=== PATIENT | female | born 1945 | race Caucasian/White ===

== ENCOUNTER 2017-04-04 13:36 | Observation (INO) | payer MEDICARE ==
[~2017-04-04] VITALS: Ht 149.9 cm; Wt 61.5 kg
[~2017-04-04 13:36] MED LIST: MORP30SU PO; SENO8.6T6 PO; ZOFR8TAB4 PO
[2017-04-04 13:38] VITALS: BP 163/88; PULSE 78; RESP 24; TEMP 98.3; O2SAT 96
[2017-04-04] MEDS ORDERED: SODIUM CHLOR 0.9% 1000 ML INJ 1,000 ML IV ONE ×2 (14:20→16:00)
[2017-04-04] MEDS ORDERED: ONDANSETRON HCL 4 MG/2 ML VIAL IVP ONE (14:30)
[2017-04-04] MEDS ORDERED: SODIUM CHLORIDE 0.9% FLUSH 10 ML FLUSH IVF PRN (14:30)
--- NOTE | 2017-04-04 15:10 | PD ---
HPI Chief Complaint: GI Complaint Time Seen by Provider: 14:15 Travel History International Travel<30 days: No Contact w/Intl Traveler<30days: No Traveled to known affect area: No History of Present Illness HPI Patient is a 71-year-old female presenting to emergency for evaluation of intractable vomiting. Patient states it started yesterday around 3 PM. She is currently receiving chemotherapy for metastatic pancreatic cancer. She started her infusion yesterday, and they will continue through tomorrow. She denies any abdominal pain but reports irritation in her throat. She has been dry heaving, vomiting yellow green bile. She is intolerant to any food or fluids. PFSH Past Medical History Cancer: No Cardiovascular Problems: No High Cholesterol: Yes Chemotherapy: Yes (IN PROCESS) Diabetes: No GERD: Yes Glaucoma: No Hepatitis: No Hiatal Hernia: No Hypertension: No Musculoskeletal: No Neurologic: No Respiratory: No Thyroid Disease: No Menopausal: Yes Past Surgical History Appendectomy: Yes Gynecologic Surgery: Yes (D&C, several) Pacemaker: No Social History Alcohol Use: Yes (RARE) Tobacco Use: No Substance Use: No Allergies-Medications (Allergen,Severity, Reaction): Coded Allergies: No Known Allergies (Verified , 04/04/17) Reported Meds & Prescriptions Reported Meds & Active Scripts Active Reported Morphine Sulfate Ir 30 mg Tab (Morphine Sulfate) 30 Mg Tab 30 Mg PO Q12 PRN Senokot (Sennosides) 8.6 Mg Tab 8.6 Mg PO BID Zofran Odt (Ondansetron HCl) 8 Mg Tab 8 Mg PO Q8 PRN Review of Systems Except as stated in HPI: all other systems reviewed are Neg Gastrointestinal: Positive: Nausea, Vomiting, Loss of Appetite Physical Exam Narrative GENERAL: Well-developed, well-nourished, alert female. Appears uncomfortable, in no acute distress. SKIN: Warm and dry. HEAD: Atraumatic. Normocephalic. EYES: Pupils equal and round. No scleral icterus. No injection or drainage. ENT: No nasal bleeding or discharge. Mucous membranes pink and moist. NECK: Trachea midline. No JVD. CARDIOVASCULAR: Regular rate and rhythm. RESPIRATORY: No accessory muscle use. Clear to auscultation. Breath sounds equal bilaterally. GASTROINTESTINAL: Abdomen soft, non-tender, nondistended. Hepatic and splenic margins not palpable. MUSCULOSKELETAL: Extremities without clubbing, cyanosis, or edema. No obvious deformities. NEUROLOGICAL: Awake and alert. No obvious cranial nerve deficits. Motor grossly within normal limits. Five out of 5 muscle strength in the arms and legs. Normal speech. PSYCHIATRIC: Appropriate mood and affect; insight and judgment normal. Data Data Last Documented VS Vital Signs Date Time Temp Pulse Resp B/P Pulse Ox O2 Delivery O2 Flow Rate FiO2 04/04/17 13:38 98.3 78 24 163/88 96 Room Air Orders Complete Blood Count With Diff (04/04/17 14:20) Comprehensive Metabolic Panel (04/04/17 14:20) Lipase (04/04/17 14:20) Iv Access Insert/Monitor (04/04/17 14:20) Ecg Monitoring (04/04/17 14:20) Oximetry (04/04/17 14:20) Ondansetron Inj (Zofran Inj) (04/04/17 14:30) Sodium Chlor 0.9% 1000 Ml Inj (Ns 1000 M (04/04/17 14:20) Sodium Chloride 0.9% Flush (Ns Flush) (04/04/17 14:30) Sodium Chlor 0.9% 1000 Ml Inj (Ns 1000 M (04/04/17 16:00) Promethazine Inj (Phenergan Inj) (04/04/17 16:30) Prochlorperazine Inj (Compazine Inj) (04/04/17 17:15) Admit Order (Ed Use Only) (04/04/17 17:44) Labs Laboratory Tests Test 04/04/17 14:50 White Blood Count 12.7 TH/MM3 Red Blood Count 4.40 MIL/MM3 Hemoglobin 12.6 GM/DL Hematocrit 38.6 % Mean Corpuscular Volume 87.7 FL Mean Corpuscular Hemoglobin 28.6 PG Mean Corpuscular Hemoglobin 32.7 % Concent Red Cell Distribution Width 15.8 % Platelet Count 157 TH/MM3 Mean Platelet Volume 7.9 FL Neutrophils (%) (Auto) 82.4 % Lymphocytes (%) (Auto) 8.2 % Monocytes (%) (Auto) 9.3 % Eosinophils (%) (Auto) 0.0 % Basophils (%) (Auto) 0.1 % Neutrophils # (Auto) 10.4 TH/MM3 Lymphocytes # (Auto) 1.0 TH/MM3 Monocytes # (Auto) 1.2 TH/MM3 Eosinophils # (Auto) 0.0 TH/MM3 Basophils # (Auto) 0.0 TH/MM3 CBC Comment DIFF FINAL Differential Comment Sodium Level 144 MEQ/L Potassium Level 3.7 MEQ/L Chloride Level 104 MEQ/L Carbon Dioxide Level 29.9 MEQ/L Anion Gap 10 MEQ/L Blood Urea Nitrogen 24 MG/DL Creatinine 1.05 MG/DL Estimat Glomerular Filtration 51 ML/MIN Rate Random Glucose 121 MG/DL Calcium Level 9.4 MG/DL Total Bilirubin 0.7 MG/DL Aspartate Amino Transf 39 U/L (AST/SGOT) Alanine Aminotransferase 24 U/L (ALT/SGPT) Alkaline Phosphatase 141 U/L Total Protein 7.5 GM/DL Albumin 4.0 GM/DL Lipase 36 U/L [facility] Medical Decision Making Medical Screen Exam Complete: Yes Emergency Medical Condition: Yes Medical Record Reviewed: Yes Interpretation(s) Laboratory Tests Test 04/04/17 14:50 White Blood Count 12.7 TH/MM3 Red Blood Count 4.40 MIL/MM3 Hemoglobin 12.6 GM/DL Hematocrit 38.6 % Mean Corpuscular Volume 87.7 FL Mean Corpuscular Hemoglobin 28.6 PG Mean Corpuscular Hemoglobin 32.7 % Concent Red Cell Distribution Width 15.8 % Platelet Count 157 TH/MM3 Mean Platelet Volume 7.9 FL Neutrophils (%) (Auto) 82.4 % Lymphocytes (%) (Auto) 8.2 % Monocytes (%) (Auto) 9.3 % Eosinophils (%) (Auto) 0.0 % Basophils (%) (Auto) 0.1 % Neutrophils # (Auto) 10.4 TH/MM3 Lymphocytes # (Auto) 1.0 TH/MM3 Monocytes # (Auto) 1.2 TH/MM3 Eosinophils # (Auto) 0.0 TH/MM3 Basophils # (Auto) 0.0 TH/MM3 CBC Comment DIFF FINAL Differential Comment Sodium Level 144 MEQ/L Potassium Level 3.7 MEQ/L Chloride Level 104 MEQ/L Carbon Dioxide Level 29.9 MEQ/L Anion Gap 10 MEQ/L Blood Urea Nitrogen 24 MG/DL Creatinine 1.05 MG/DL Estimat Glomerular Filtration 51 ML/MIN Rate Random Glucose 121 MG/DL Calcium Level 9.4 MG/DL Total Bilirubin 0.7 MG/DL Aspartate Amino Transf 39 U/L (AST/SGOT) Alanine Aminotransferase 24 U/L (ALT/SGPT) Alkaline Phosphatase 141 U/L Total Protein 7.5 GM/DL Albumin 4.0 GM/DL Lipase 36 U/L Vital Signs Date Time Temp Pulse Resp B/P Pulse Ox O2 Delivery O2 Flow Rate FiO2 04/04/17 13:38 98.3 78 24 163/88 96 Room Air Differential Diagnosis Metabolic abnormality versus intractable nausea and vomiting versus medication side effects versus other Narrative Course Patient is a 71-year-old female presenting for evaluation of intractable nausea and vomiting secondary to chemotherapy. Patient has a right chest port and is currently receiving chemotherapy infusion. Patient's vital signs are stable, labs ordered and pending IV fluids and Zofran ordered. Pt continued to vomit despite Zofran administration. Phenergan ordered by Dr. Wagner. A second liter of IVF's ordered. CBC with a white count of 12.7 with left shift, likely inflammatory from vomiting, patient remains afebrile, chemistry with a slight elevation BUN and creatinine otherwise no acute findings identified. Compazine ordered. Pt continues to dry heave. Discussed with S, Dr. Mejia who accepted admit. Order placed under Dr. Wakefield per his request. Paged Dr. Ray to notify him of admit. Pt agreeable to plan. Diagnosis Primary Impression: Intractable vomiting with nausea Qualified Code: R11.2 - Intractable vomiting with nausea, unspecified vomiting type Admitting Information Admitting Physician Requests: Observation Condition: Stable Che Gonzalez PATIENT CARE TECHNICIAN Apr 04, 2017 15:10
[2017-04-04 15:18] LABS: AUTOMATED NEUTROPHIL # 10.4 TH/MM3 (1.8-7.7); BASOPHIL % 0.1 % (0.0-2.0); HEMATOCRIT 38.6 % (35.0-46.0); HEMO FLAGS DIFF FINAL; LYMPH % 8.2 % (9.0-44.0); MEAN CELL VOLUME 87.7 FL (80.0-100.0); MEAN CORPUSCULAR HEMOGLOBIN 28.6 PG (27.0-34.0); MEAN CORPUSCULAR HGB CONC 32.7 % (32.0-36.0); MONO % 9.3 % (0.0-8.0); NEUT % 82.4 % (16.0-70.0); PLATELET COUNT 157 TH/MM3 (150-450); RED CELL DISTRIBUTION WIDTH 15.8 % (11.6-17.2); WHITE BLOOD COUNT 12.7 TH/MM3 (4.0-11.0)
[2017-04-04 15:40] LABS: ANION GAP 10 MEQ/L (5-15); AST (GOT) 39 U/L (15-37); BICARBONATE 29.9 MEQ/L (21.0-32.0); BLOOD UREA NITROGEN 24 MG/DL (7-18); CHLORIDE 104 MEQ/L (98-107); GLOMERULAR FILTRATION RATE 51 ML/MIN (>89); POTASSIUM 3.7 MEQ/L (3.5-5.1); SODIUM (NA) 144 MEQ/L (136-145)
[2017-04-04 15:41] LABS: ALKALINE PHOSPHATASE 141 U/L (45-117); ALT (GPT) 24 U/L (10-53); TOTAL BILIRUBIN ADULT 0.7 MG/DL (0.2-1.0)
[2017-04-04] MEDS ORDERED: PROMETHAZINE INJ 25 MG/ML VIAL IM ONE (16:30)
[2017-04-04] MEDS ORDERED: PROCHLORPERAZINE INJ 10 MG/2 ML VIAL IV PUSH ONE (17:15)
[2017-04-04] MEDS ORDERED: SENNOSIDES 8.6 MG TAB PO PRN (18:00)
[2017-04-04] MEDS ORDERED: ONDANSETRON HCL 4 MG/2 ML VIAL IV PUSH PRN (18:00)
[2017-04-04] MEDS ORDERED: NALOXONE HCL 0.4 MG/ML AMP IV PRN (18:00)
[2017-04-04] MEDS ORDERED: SODIUM CHLORIDE 0.9% FLUSH 10 ML FLUSH IV FLUSH PRN (18:00)
[2017-04-04] MEDS ORDERED: ONDANSETRON HCL 4 MG/2 ML VIAL IVP PRN (18:00)
[2017-04-04] MEDS ORDERED: BISACODYL 10 MG SUPP RECTAL PRN (18:00)
[2017-04-04] MEDS ORDERED: ACETAMINOPHEN 325 MG TAB PO PRN (18:00)
[2017-04-04] MEDS ORDERED: ONDANSETRON ODT 4 MG TAB PO PRN (19:00)
[2017-04-04 19:22] VITALS: BP 120/59; PULSE 81; RESP 18; O2SAT 94
--- NOTE | 2017-04-04 19:51 | MH ---
cc: NERISSA HAMILTON DATE OF ADMISSION 04/04/2017 DATE OF 1945 CHIEF COMPLAINT Nausea, vomiting. Travel in the last 30 days, none. HISTORY OF PRESENT ILLNESS This is a pleasant but unfortunate 71-year-old female who is presented to the emergency room with uncontrollable nausea, vomiting. The patient is a known pancreatic cancer patient. She is currently receiving chemotherapy via slow infusion and it will be completed tomorrow. The patient has undergone 53 three-day treatments of chemotherapy and has survived for several years with her pancreatic cancer. Currently she is to continuing to dry heave, and vomit yellow-green bile. She states that her throat is very sore from the multiple episodes of vomiting. She has had these symptoms since 03:00 p.m. yesterday. Due to the patient's continuous nausea and vomiting limited information was given per the patient, although she is alert and a good historian, most of the other information such as her history will be gathered from the record. The patient does note a 30 pound weight loss on her initial diagnosis but has regained her 30 pounds back. She denies any dysuria. She is voiding fine and she had a normal bowel movement today. Today the patient has been unable to keep any food down. PAST MEDICAL HISTORY 1. Pancreatic cancer. 2. Hyperlipidemia. 3. Gastroesophageal reflux disease. PAST SURGICAL HISTORY 1. Appendectomy. 2. Several dilation and curettages. 3. Chemotherapy infusion port. ALLERGIES NONE KNOWN. MEDICATIONS Reported: 1. morphine sulfate 30 mg tablets p.o. at 12 hours as needed. 2. Senokot suppositories. 3. Zofran 8 mg p.o. q.8h as needed. SOCIAL HISTORY The patient is single, currently lives in her home. Her children are with her assisting her during this difficult time. The patient denies any tobacco. No illicit drugs. A rare social alcohol drink. REVIEW OF SYSTEMS Limited secondary to the patient's nausea, vomiting. She does note continuous nausea and vomiting. Currently has chemotherapy infusing. Other information is listed in HPI, otherwise systems are negative. PHYSICAL EXAMINATION VITAL SIGNS: Temperature is 98.3, pulse 78, respiratory rate 18-24, blood pressure 163/88. O2 saturation 96% currently on room air. GENERAL: Well-developed, well-nourished white female looks younger than her stated age, resting on the bed. She is awake with some mild facial grimace related to a nausea, vomiting. SKIN: [place], warm and dry. HEENT: Atraumatic, normocephalic. PETER at 3. Mucous membranes are moist and pink. No scleral icterus. NECK: Supple. CARDIOVASCULAR: S1-S2, rhythm is regular. She does have a systolic murmur grade 2/6 at the left sternal border. RESPIRATORY: Essentially clear lungs anteriorly and posteriorly. No wheezes or rhonchi. GASTROINTESTINAL: Abdomen is soft, nondistended. Bowel sounds are active. MUSCULOSKELETAL: Moves all of her extremities with purpose. No obvious deformities. NEUROLOGIC: She is awake, alert, a fairly good historian. Upper body strength is equal. PSYCHIATRIC: Mood and affect appropriate. Insight and judgment normal. DIAGNOSTIC DATA WBC count 12.7, RBC 4.4, hemoglobin 12.6, hematocrit 38.6, platelet count 157, neutrophil count 82.4, lymphocyte count 8.2, monocyte count 9.3. Chemistry sodium 144, potassium 3.7, chloride 104, carbon dioxide 29.9. Amnion gap 10, BUN 24, creatinine 1.05, GFR 51, random glucose 121, AST 39, alkaline phosphatase 141, lipase 36. ASSESSMENT/PLAN 1. Intractable nausea and vomiting, uncontrolled. 2. Pancreatic cancer with metastases to lung. 3. Pancreatic cancer with metastases to liver. 4. Leukocytosis. 5. Acute kidney injury with probable dehydration. 6. Mildly elevated blood sugar. 7. Elevated alkaline phosphatase. Our plan is to admit for observation and control her symptoms chiefly of nausea, vomiting. We will place her on IV fluids for hydration, clear liquids only as tolerated. Encouraged ice chips. We will continue his ECG monitoring with IV access, PUD prophylaxis with IV Pepcid until she can tolerate p.o. DVT prophylaxis with heparin subcutaneous. We will monitor her vital signs q.4h and as warranted. Out of bed activity with assistance. We will consult her medical oncologist who is Dr. Ray or one of his associates to assist in her care. Bowel regimen has been ordered. Home medications have been reconciled except for her pain medications. The patient states that she does not take any pain medications but has as needed medications only if needed. We will continue to follow. Dictated by: RAJ Hernandez MD DIGNA Hyde/ELMIRA /6:38 PM /7:19 PM
[2017-04-04 20:33] VITALS: BP 193/93; PULSE 75; RESP 18; TEMP 99; O2SAT 95
[2017-04-04] MEDS ORDERED: SENNOSIDES 8.6 MG TAB PO SCH (21:00)
[2017-04-04] MEDS ORDERED: PROMETHAZINE HCL 25 MG TAB PO PRN (22:30)
[2017-04-04] MEDS ORDERED: TEMAZEPAM 15 MG CAP PO PRN (22:30)
[2017-04-04] MEDS ORDERED: PILL SPLITTER OTHER PRN (22:30)
[2017-04-04] MEDS ORDERED: cloNIDine HCL 0.1 MG TAB PO PRN (22:30)
[2017-04-04] MEDS: FAMOTIDINE 20 MG/2 ML VIAL IV PUSH SCH (22:39)
[2017-04-04] MEDS: HEPARIN SODIUM - SQ 10,000 UNITS/ML VIAL SQ SCH (22:39)
[2017-04-04] MEDS: SODIUM CHLORIDE 0.9% FLUSH 10 ML FLUSH IV FLUSH SCH (22:40)
[2017-04-04] MEDS: SODIUM CHLOR 0.45% 1000 ML INJ 1,000 ML IV SCH (22:40)
[2017-04-04 23:43] VITALS: BP 181/85; PULSE 72; RESP 20; TEMP 97.5; O2SAT 95
[2017-04-05 03:24] VITALS: BP 121/64; PULSE 64; RESP 20; TEMP 96.4; O2SAT 94
[2017-04-05] MEDS: SODIUM CHLOR 0.45% 1000 ML INJ 1,000 ML IV SCH (06:36)
[2017-04-05 08:27] VITALS: BP 143/70; PULSE 64; RESP 16; TEMP 98.6; O2SAT 94
[2017-04-05] MEDS: SODIUM CHLORIDE 0.9% FLUSH 10 ML FLUSH IV FLUSH SCH (09:00)
[2017-04-05] MEDS: HEPARIN SODIUM - SQ 10,000 UNITS/ML VIAL SQ SCH (10:01)
[2017-04-05] MEDS: FAMOTIDINE 20 MG/2 ML VIAL IV PUSH SCH (10:02)
--- NOTE | 2017-04-05 10:38 | HHI.PR ---
Subjective Remarks Pt reports that she has not had any further vomiting since 0 last night. She has tolerated some clear liquids today Reports that her throat is very raw from all the vomiting. Objective Vitals Vital Signs Date Time Temp Pulse Resp B/P Pulse Ox O2 Delivery O2 Flow Rate FiO2 04/05/17 10:13 21 04/05/17 08:27 98.6 64 16 143/70 94 04/05/17 03:24 96.4 64 20 121/64 94 04/04/17 23:43 97.5 72 20 181/85 95 04/04/17 20:33 99.0 75 18 193/93 95 04/04/17 19:32 21 04/04/17 19:22 81 18 120/59 94 04/04/17 13:38 98.3 78 24 163/88 96 Room Air Result Diagram: 04/04/17 1450 04/04/17 1450 Other Results Laboratory Tests Test 04/04/17 14:50 White Blood Count 12.7 TH/MM3 Red Blood Count 4.40 MIL/MM3 Hemoglobin 12.6 GM/DL Hematocrit 38.6 % Mean Corpuscular Volume 87.7 FL Mean Corpuscular Hemoglobin 28.6 PG Mean Corpuscular Hemoglobin 32.7 % Concent Red Cell Distribution Width 15.8 % Platelet Count 157 TH/MM3 Mean Platelet Volume 7.9 FL Neutrophils (%) (Auto) 82.4 % Lymphocytes (%) (Auto) 8.2 % Monocytes (%) (Auto) 9.3 % Eosinophils (%) (Auto) 0.0 % Basophils (%) (Auto) 0.1 % Neutrophils # (Auto) 10.4 TH/MM3 Lymphocytes # (Auto) 1.0 TH/MM3 Monocytes # (Auto) 1.2 TH/MM3 Eosinophils # (Auto) 0.0 TH/MM3 Basophils # (Auto) 0.0 TH/MM3 CBC Comment DIFF FINAL Differential Comment Sodium Level 144 MEQ/L Potassium Level 3.7 MEQ/L Chloride Level 104 MEQ/L Carbon Dioxide Level 29.9 MEQ/L Anion Gap 10 MEQ/L Blood Urea Nitrogen 24 MG/DL Creatinine 1.05 MG/DL Estimat Glomerular Filtration 51 ML/MIN Rate Random Glucose 121 MG/DL Calcium Level 9.4 MG/DL Total Bilirubin 0.7 MG/DL Aspartate Amino Transf 39 U/L (AST/SGOT) Alanine Aminotransferase 24 U/L (ALT/SGPT) Alkaline Phosphatase 141 U/L Total Protein 7.5 GM/DL Albumin 4.0 GM/DL Lipase 36 U/L Objective Remarks General: NAD, AAOx3 Chest: CTA, port in upper right chest wall Cardiac: Regular Abd: +BS, soft ND/NT Ext: No edema A/P Problem List: (1) Intractable vomiting with nausea Status: Acute Plan: - Pt is a 71 y/o female with known metastatic pancreatic cancer with mets to the liver who has been in chemotherapy since 2013 with last PET/CT showing complete remission of her disease. - She presented to the ED at [facility] on 04/04/17 with intractable nausea, vomiting. She states that she typically has N/V after initiation of her chemo on Tuesday 04/03 (FOLFIRINOX which she receives for 3 days every 4 weeks). It is not unusual for her to have vomiting after this is started but reports that the N/V did not cease like it normally does after a few hours. - Pt was given IVF and antiemetics and today is improving. No vomiting since 2300 last night. - Pt tolerating some clear liquids this morning - Cont. IVF for now until repeat BMP results - Liquid diet as tolerated - Advance as tolerated - Pt reports a very raw/sore throat today, will monitor, likely secondary to the vomiting. She typically uses Chloraseptic spray at home for relief. - Pts Oncologist, Dr. Ray, was consulted at admission. She is to have her Chemo infusion stopped and removed around 12:00 today. Discussed with the pts nurse calling [facility] regarding this. - Will recheck the pts status this afternoon and if tolerating her diet and clinically improving we will discharge to home. (2) Pancreatic cancer metastasized to liver Status: Resolved Plan: - See above. Assessment and Plan Patient examined. Assessment and plan formulated with Rufina Farris PA-C. I agree with the above. intractable n/v and dehydration after chemo rx. given ivf and now doing better. she still has a sore throat from vomiting. she wants to go home tonight. Problem Qualifiers (1) Intractable vomiting with nausea: Qualified Code: R11.2 - Intractable vomiting with nausea, unspecified vomiting type Rufina Farris Apr 05, 2017 10:38 Teo Cadena MD Apr 05, 2017 16:15
[2017-04-05 10:50] LABS: BICARBONATE 29.3 MEQ/L (21.0-32.0); MAGNESIUM 2.4 MG/DL (1.5-2.5); POTASSIUM 3.8 MEQ/L (3.5-5.1)
[2017-04-05] MEDS ORDERED: BENZOCAINE-MENTHOL (SUGAR FREE) 15 MG-3.6 MG LOZENGE BUCCAL PRN (11:45)
[2017-04-05 12:26] VITALS: BP 128/70; PULSE 62; RESP 18; TEMP 98.9; O2SAT 95
[2017-04-05] MEDS ORDERED: ZOFR4TAB3 SL (14:29)
--- NOTE | 2017-04-05 14:30 | HHI.DCPOC ---
Discharge Care Plan Diagnosis: (1) Intractable vomiting with nausea (2) Pancreatic cancer metastasized to liver Goals to Promote Your Health - Patient is to continue to drink plenty of fluids. - Advance to soft diet as tolerated at home. - Take Chloraseptic spray as needed for sore throat - Followup with Dr. Ray in 1 week, call for an appt. Directions to Meet Your Goals Take your medications as prescribed Follow your dietary instruction Follow activity as directed Keep your appointments as scheduled Take your immunizations and boosters as scheduled If your symptoms worsen call your PCP, if no PCP go to Urgent Care Center or Emergency Room Smoking is Dangerous to Your Health. Avoid second hand smoke Call the 24-hour hour crisis hotline for domestic abuse at Rufina Farris Apr 05, 2017 14:30
[2017-04-05 15:48] VITALS: BP 153/83; PULSE 67; RESP 18; TEMP 98.7; O2SAT 96
== END 2017-04-05 16:43 | disposition home or self-care (01) ==
LOC: NEPD 13:36 → NEDA 17:46 → NEPFCDU 19:56
PROVIDERS: ADMIT Hospitalist; ATTEND Hospitalist
DX: R11.2 Nausea with vomiting, unspecified (principal); C25.9 Malignant neoplasm of pancreas, unspecified; C79.31 Secondary malignant neoplasm of brain; E78.00 Pure hypercholesterolemia, unspecified; K21.9 Gastro-esophageal reflux disease without esophagitis; Z79.899 Other long term (current) drug therapy
CPT/HCPCS: 80048; 80053; 83690; 83735; 85025; 96374; 99285; G0378; J1644; J2405; J2550; J7030